=== PATIENT | male | born 2005 | race Caucasian/White ===

== ENCOUNTER 2025-07-14 00:17 | Emergency (ER) | payer SELFPAY ==
[2025-07-14 00:20] VITALS: BP 162/100; PULSE 74; TEMP 37.1; O2SAT 97; BMI 37.7
--- OUTSIDE RECORDS SUMMARY | 2025-07-14 00:51 | XMS_ITS | Clinical Summary ---
Author Organization [employer] [facility] Address [id number] [address] [place] [address] Care Team Providers Care Drop Machine Operator Name Role Phone Jaylon Arrieta MD Primary Care Provider [phone] Allergies No known active allergies Medications MedicationSigDispense QuantityRefillsLast FilledStart DateEnd DateStatus cetirizine (ZyrTEC) 10 MG chewable tablet Chew 10 mg and swallow daily.Active montelukast (SINGULAIR) 5 mg chewable tablet Chew 5 mg and swallow nightly.Active Active Problems ProblemNoted DateDiagnosed DateForeign body of face03/11/2017 Immunizations ImmunizationAdministration DatesNext GlhBgpw6203/11/2017 Social History Tobacco UseTypesPacks/DayYears UsedDateSmoking Tobacco: NeverAlcohol UseStandard Drinks/WeekCommentsNo0 (1 standard drink = 0.6 oz pure alcohol)ChildcareAnswer Date XfzxfjptYzoxijawrSsvwkbw55/10/2019EmploymentAnswerDate RecordedEmployment Dpwprns7202/11/2019Purpose - LifeAnswerDate RecordedPurpose and direction in life Mviqdge70/10/2021Sex and Gender InformationValueDate RecordedSex Assigned at BirthNot on fileLegal OpwZnqd8104/07/2015 3:06 PM EDTGender IdentityNot on file Sexual OrientationNot on file Last Filed Vital Signs Vital SignReadingTime TakenCommentsBlood Uxwcblso478/6907 9:53 AM EDT Dmchx947403/24/2017 9:53 AM ZXDRirreobouxx74.3 ??C (97.3 ??F)03/11/2017 8:42 PM EDTRespiratory Dtyh677703/11/2017 8:45 PM EDTOxygen Mgmfwnersa52%03/11/2017 8:45 PM EDTInhaled Oxygen Concentration--Lrgfso22 kg (213 lb 13.5 oz)03/24/2017 9:53 AM EDTHeight--Body Mass Index-- Plan of Treatment Health MaintenanceDue DateLast DoneCommentsDepression Hruliswie57/09/2017Tobacco Brckdhdfs47/09/2017Adult BMI Agvxpksru54/09/2023Influenza Wbqdebj0705/05/2025 DTaP,Tdap and Td Vaccines (2 - Td or Tdap) Medical Devices Not on file Insurance MemberSubscriberPlan / Payer (Effective 2015-Present)Name:Andrés Pinto Relation to Subscriber:ChildName:CATHIE PINTO Date of :1966 Address: [address] [place] [id number] Payer ID:[id number] (NAIC) Type:Not on file Address: [facility] [id number] [place] [id number] Care Teams Team MemberRelationshipSpecialtyStart DateEnd Jaylon Arrieta MD PCP - General03/11/17
--- OUTSIDE RECORDS SUMMARY | 2025-07-14 00:51 | XMS_ITS | Patient Health Record ---
Author Organization [facility] in [place] Address [address] [place] [address] Support Name Relationship Address Phone Julia Blair Emergency Contact Unknown [phone] Danilo Pinto Guarantor Unknown [phone] Reason For Referral No Information Medications Medication SIG (Take, Route, Frequency, Duration) Notes Start Date End Date Status ZyrTEC [facility] 5 mg 1 DAILY; Duration: 30 days 03/20/2009ctiveFlonase 0.05 mg/inh1 spray(s) DAILY; Duration: 30 daysSpray inside each nostril as instructed. Refer to package insert if needed.03/20/2009 Active Plan Of Treatment No Information Insurance Providers Payer Name Payer Address Payer Phone Subscriber Number Group Number Insured Name Patient Relationship to Insured Coverage Start Date Coverage End Date SELF PAY ON PATIENT DEMOGRAPHICS Ever Pinto - patient is the jefsehz3803/27/2012
--- OUTSIDE RECORDS SUMMARY | 2025-07-14 00:51 | XMS_ITS | Clinical Summary ---
Author Organization [facility] Address [address] [place] [address] Care Team Providers Care Integrity Engineer Name Role Phone Rashaad Thompson Scottie DO Primary Care Provider [phone] Tam Arora DO Unavailable [phone] Allergies No known active allergies Medications MedicationSigDispense QuantityRefillsLast FilledStart DateEnd DateStatus cetirizine-pseudoephedrine (ZyrTEC-D) 5-120 MG 12 hr tablet Indications:Chronic pansinusitisTake 1 tablet by mouth in the morning and 1 tablet before bedtime. 60 tablet 111ctive Azelastine HCl 137 MCG/SPRAY solution Indications:Allergic rhinitis due to animal (cat) (dog) hair and danderUSE 2 SPRAYS IN EACH NOSTRIL TWICE A DAY 90 mL 5Active fluticasone (Flonase) 50 MCG/ACT nasal spray Indications:Allergic rhinitis due to animal (cat) (dog) hair and dander Administer 2 sprays into each nostril Daily Shake gently. Before first use, prime pump. After use, clean tip and replace cap. 48 mL 5Active Active Problems ProblemNoted DateDiagnosed DateSeasonal cygzvyqwl93/05/2025hronic pansinusitis 06/05/2023llergic rhinitis due to kbkfbt8604/10/2023hronic vuxijdhf01/07/2023 Severe obesity (BMI 35.0-39.9) with oitpxolvzgz56/07/2023sthma in adult 04/05/2023 Resolved Problems ProblemNoted DateDiagnosed DateResolved DateDiscoid lateral meniscus of left kneellergic rhinitis due to animal (cat) (dog) hair and sctbvu29cute diffuse otitis externa of left ear03/25/2023 03/25/2023Foreign body of face Immunizations ImmunizationAdministration DatesNext YolOPxG8202/24/2010DTaP / Hep B / IPV 05/24/2005,03/14/2005,01/13/2005DTaP, 5 pertussis prvuseeg78/12/2006IPV 02/24/2010Influenza, Zysooszrsnn07/20/2017Influenza, injectable, quadrivalent, preservative free07/29/2019Influenza, seasonal, laljovbahp14/28/2005MMR 02/24/2010,11/17/2005Meningococcal ACWY, zmgiwksjqko82/01/2017Meningococcal OOD9B7304/19/2022neumococcal Polysaccharide IXVB301510/11/20162175Xxlr72/08/2017 Lqllsfgpe62/23/2010,11/17/2005 Family History Medical HistoryRelationNameCommentsHypertensionFatherJamesDiabetesMotherJodi HypertensionMotherJodiObesityMotherJodiDiabetesOtherHeart diseaseOther HyperlipidemiaOtherHypertensionOtherAllergiesSiblinghearing deficiencySibling FusvvprlGrcaKkoxaxMuwrqqnbEuxmrax1QrgfcmQkdhhEtmppMssvwyEbpvGmffbUogvsRsfsjqh Sister2 Social History Tobacco UseTypesPacks/DayYears UsedDateSmoking Tobacco: Every DayCigarettes0.3 0.5Smokeless Tobacco: FormerChew Tobacco Cessation:Ready to Q uit: No; Counseling Given: Yes Alcohol UseStandard Drinks/ZteeRhcbqtbhJba86 (1 standard drink = 0.6 oz pure alcohol)Socially, Caffeine intake: 2-3 cups per day soda/popHumiliation, Afraid, Rape, and Kick questionnaireAnswerDate RecordedWithin the last year, have you been afraid of your partner or ex-partner?No04/10/2023Within the last year, have you been humiliated or emotionally abused in other ways by your partner or ex-partner?No04/10/2023Within the last year, have you been kicked, hit, slapped, or otherwise physically hurt by your partner or ex-partner?No04/10/2023Within the last year, have you been raped or forced to have any kind of sexual activity by your partner or ex-partner?No04/10/2023Social Connection and Isolation Panel AnswerDate RecordedIn a typical week, how many times do you talk on the phone with family, friends, or neighbors?More than three times a week04/10/2023How often do you get together with friends or relatives?Once a week04/10/2023How often do you attend spiritism or alevism services?1 to 4 times per year04/10/2023 Do you belong to any clubs or organizations such as spiritism groups, unions, fraternal or athletic groups, or school groups?No04/10/2023How often do you attend meetings of the clubs or organizations you belong to?Never04/10/2023re you , , , , never , or living with a partner?Never hdjhwew3704/10/2023UDIT-CAnswerDate RecordedQ1: How often do you have a drink containing alcohol?2-3 times a week04/10/2023Q2: How many drinks containing alcohol do you have on a typical day when you are drinking?5 or 6 04/10/2023Q3: How often do you have six or more drinks on one occasion?Less than kfhxeby6004/10/2023Overall Financial Resource Strain (CARDIA)AnswerDate Recorded How hard is it for you to pay for the very basics like food, housing, medical care, and heating?Not very hard04/10/2023HQ-2AnswerDate RecordedPatient Health Questionnaire-2 [facility]zzu799[facility] - Occupational Stress QuestionnaireAnswerDate RecordedDo you feel stress - tense, restless, nervous, or anxious, or unable to sleep at night because yourmind is troubled all the time - these days?To some wdrbgu1304/10/2023Exercise Vital Sign AnswerDate RecordedOn average, how many days per week do you engage in moderate to strenuous exercise (like a brisk walk)?7 days04/10/2023On average, how many minutes do you engage in exercise at this level?60 min04/10/2023Hunger Vital SignAnswerDate RecordedWithin the past 12 months, you worried that your food would run out before you got the money to buymore.Never true04/10/2023Within the past 12 months, the food you bought just didn't last and you didn't have money to get more.Never true04/10/2023RAPARE - TransportationAnswerDate RecordedIn the past 12 months, has lack of transportation kept you from medical appointments or from getting medications?No04/10/2023In the past 12 months, has lack of transportation kept you from meetings, work, or from getting things needed for daily living?No04/10/2023Housing Stability Vital SignAnswerDate RecordedIn the last 12 months, was there a time when you were not able to pay the mortgage or rent on time?No04/10/2023In the last 12 months, how many places have you lived?In the last 12 months, was there a time when you did not have a steady place to sleep or slept in [facility] (including now)?No 04/10/2023Sex and Gender InformationValueDate RecordedSex Assigned at BirthNot on fileLegal SnoMarn8711/16/2022 7:22 PM EDTGender IdentityNot on fileSexual OrientationNot on file Last Filed Vital Signs Vital SignReadingTime TakenCommentsBlood Rlpywpew254/72010/09/2024 3:39 PM EST Ggoxt409710/09/2024 3:39 PM PFFUzsbwbbymtn73.8 ??C (98.3 ??F)10/09/2024 3:39 PM ESTRespiratory Rate--Oxygen Pdkcgruvvi11%10/09/2024 3:39 PM ESTInhaled Oxygen Concentration--Cfyquy641 kg (321 lb)04/02/2025 12:14 PM REUSrwmyr662 cm (6' 4 ) 10/09/2024 3:39 PM ESTBody Mass Index39.0710/09/2024 3:39 PM EST Plan of Treatment DateTypeDepartmentCare Team (Latest Contact Info)Vtnxodcqssh05/29/2026 11:40 AM EDTOffice Visit [facility] [address] [place] [phone] Jitendra Baker MD [address] [address] [place] [address] Health MaintenanceDue DateLast DoneCommentsPneumococcal Vaccine: Pediatrics (0 to 5 Years) and At-Risk Patients (6 to 64 Years) (2 of 2 - PCV)08/10/2018 08/10/2017COVID-19 Vaccine (1 - 2023- season)2025Influenza Vaccine (#1) 5109/28/2018, 06/23/2017, 08/01/2005 Insurance Care Teams Team MemberRelationshipSpecialtyStart DateEnd Date Thompson Neil DO [address] [facility] [place] [address] PCP - GeneralFamily Medicine03/25/23 Tam Arora DO [address] [facility] [address] [place] [address] PCP - Medical [place] [employer]09/04/2511
--- OUTSIDE RECORDS SUMMARY | 2025-07-14 00:51 | XMS_ITS | Clinical Summary ---
Author Organization [facility] Address [address] [place] [address] Care Team Providers Care Jewelry Mechanic Name Role Phone Unavailable Primary Care Provider Unavailabl e Medications No known medications Active Problems No known active problems Social History Tobacco UseTypesPacks/DayYears UsedDateSmoking Tobacco: Never AssessedArea Deprivation IndexAnswerDate RecordedNational Score (1-100), lower number is lower riskNot on file08/14/2020State Score (1-10), lower number is lower riskNot on file08/14/2020Data from: https://www.neighborhoodatlas.medicine.[facility].edu/. Last address used for calculationNot on file08/14/2020Sex and Gender Information ValueDate RecordedSex Assigned at BirthNot on fileLegal CeqThgq9605/19/2020 9:02 AM EDTGender IdentityNot on fileSexual OrientationNot on file Plan of Treatment Health MaintenanceDue DateLast DoneCommentsPeds To Adult Transition Initial Ceogcufwwt63/09/2017Peds To Adult Transition Annual Rzgjkgmlbl35/09/2019HPV Vaccine (1 - Male 3-dose series)11/11/2019Meningococcal B Vaccine (1 of 2 - Standard)1Anxiety Zzpvyftgr76/09/2023Depression Tjwoljdpw58/09/2023HIV Ywqxipxjm51/09/2023Hepatitis C Opwvsnpzn43/09/2023Hepatitis B Vaccine (1 of 3 - 19+ 3-dose series)4Covid-19 Vaccine (1 - season)2025 Influenza Vaccine (#1)2025DTaP,Tdap,Td Vaccine (2 - Td or Tdap)03/11/2027 03/11/2017 Insurance * Guarantor: Ochoa PINTO TypeRelation to PatientDate of BirthPhoneBilling AddressPersonal/BiwjzrIhswfv[birth year][address] [address]
[2025-07-14] MEDS: LIDOCAINE HCL 1% 100 MG/10 ML MDV INJ (01:00)
--- NOTE | 2025-07-14 01:18 | ED_ITS ---
HPI - Wound/Laceration General Chief Complaint: Wound/Laceration Stated Complaint: UPPER LEFT EXTREMITY INJURY, FINGER Time Seen by Provider: 07/14/25 00:24 Source: patient Mode of arrival: walk-in Limitations: no limitations History of Present Illness HPI narrative: cc -finger laceration The patient says that he was working at home and using a knife to cut a hose while working on his car when he accidentally slipped and cut the tip of his left middle finger. This occurred around 7 PM tonight and he did not want to come to the emergency department but his friends told him that the cut was too bad to be left to heal on its own and direct him to the ED for evaluation. He has no other injuries and no other complaints. He believes his tetanus is up-to-date within the last 5 to 7 years. Related Data Home Medications ?Medication ?Instructions ?Recorded ?Confirmed azelastine 137 mcg (0.1 %) nasal intranasal 07/14/25 spray fluticasone propionate 50 intranasal 07/14/25 mcg/actuation nasal spray,suspension Allergies Allergy/AdvReac Type Severity Reaction Status Date / Time No Known Drug Allergies Allergy Verified 07/14/25 00:22 PFSH PFS Social History Little interest or pleasure in doing things: not at all Feeling down, depressed, or hopeless: not at all Exam Narrative Exam Narrative: Nurses notes and vital signs reviewed and patient is not hypoxic. afebrile General: Well-appearing and in no apparent distress. Skin: Warm, dry, no pallor noted. Cardiovascular: Normal peripheral perfusion. Respiratory: No accessory muscle use or respiratory distress. Musculoskeletal: Left hand = curvilinear laceration noted to the distal phalanx of the left third finger. Normal ROM, no involvement of the nail, no finger edema/swelling, no bony instability or deformity Neurological: A&O x4. No cranial nerve dysfunction observed. No truncal ataxia. Moves all extremities. Sensation intact. Psychiatric: Cooperative and interactive. Normal mood and affect. Constitutional Vital Signs, click to edit/add: Last Vital Signs Temp 98.7 F 07/14/25 00:20 Pulse 74 07/14/25 00:20 Resp 18 07/14/25 00:20 BP 162/100 H 07/14/25 00:20 Pulse Ox 97 07/14/25 00:20 O2 Del Method Room Air 07/14/25 00:20 Course Vital Signs Vital signs: Vital Signs Temperature 98.7 F 07/14/25 00:20 Pulse Rate 74 07/14/25 00:20 Respiratory Rate 18 07/14/25 00:20 Blood Pressure 162/100 H 07/14/25 00:20 Pulse Oximetry 97 07/14/25 00:20 Oxygen Delivery Method Room Air 07/14/25 00:20 Temperature 98.7 F 07/14/25 00:20 Pulse Rate 74 07/14/25 00:20 Respiratory Rate 18 07/14/25 00:20 Blood Pressure 162/100 H 07/14/25 00:20 Pulse Oximetry 97 07/14/25 00:20 Oxygen Delivery Method Room Air 07/14/25 00:20 MDM - Wound/Laceration MDM Narrative Medical decision making narrative: Laceration repair:All of the procedure was done under sterile conditions.Wound cleansed with betadine and anesthetized with local injection of approximately 2.5mL of lidocaine 1% without epinephrine.The wound was irrigated copiously with sterile normal saline.The wound was explored to depth and found to be free of foreign material.The laceration wound edges were well-approximated and did not require revision.Wound closed with 5 sterile 4-0 ethilon sutures in simple interrupted fashion.Patient tolerated the procedure well.The patient was neurovascularly intact post-repair.Topical bacitracin applied to the laceration and it was dressed with a dry sterile dressing.The patient will need to follow- up in the next 7-10 days for removal. Discharge Plan Discharge Chief Complaint: Wound/Laceration Clinical Impression: Laceration Patient Disposition: Home, Self-Care Time of Disposition Decision: 01:18 Prescriptions / Home Meds: No Action azelastine 137 mcg (0.1 %) spray,non-aerosol INTRANASAL fluticasone propionate 50 mcg/actuation spray,suspension INTRANASAL Print Language: Venezuelan Instructions: Finger Laceration (ED) Referrals: AMAURY MORAN [Primary Care Provider, Unknown] - 1 week
== END 2025-07-14 01:33 | disposition home or self-care (01) ==
PROVIDERS: Emergency Provider Emergency Medicine; PCP Family Medicine
DX: S61.213A Laceration without foreign body of left middle finger without damage to nail, initial encounter (principal); W26.0XXA Contact with knife, initial encounter
CPT/HCPCS: 12001; 99282